=== PATIENT | female | born 1960 | race Caucasian/White ===

== ENCOUNTER 2021-02-22 09:14 | Day surgery (SDC) | payer OTHER ==
[~2021-02-22] VITALS: Ht 167.6 cm; Wt 100.8 kg
[~2021-02-22 09:14] MED LIST: ASPI81CH
== END 2021-02-22 11:32 | disposition home or self-care (01) ==
LOC: ORSCSDS 09:14
PROVIDERS: Surgery
PROC: 0DBK8ZX Excision of Ascending Colon, Via Natural or Artificial Opening Endoscopic, Diagnostic (ICD-10-PCS; principal; 2021-02-22 10:30)
DX: Z12.11 Encounter for screening for malignant neoplasm of colon (principal); Z80.0 Family history of malignant neoplasm of digestive organs; D12.2 Benign neoplasm of ascending colon; K57.30 Diverticulosis of large intestine without perforation or abscess without bleeding; E66.01 Morbid (severe) obesity due to excess calories; Z68.36 Body mass index [BMI] 36.0-36.9, adult; Z79.82 Long term (current) use of aspirin
CPT/HCPCS: 88305; J2704; J7120

== ENCOUNTER → 2022-06-04 | Outpatient (CLI) | payer OTHER ==
[2022-06-04 18:00] LABS: Alanine Aminotransfer (ALT/SGP 43 U/L (12-78); Albumin, Blood 3.7 g/dL (3.4-5.0); Albumin/Globulin Ratio 0.9 (0.8-1.8); Alk Phos 114 U/L (50-136); Anion Gap 5 mmol/L (6-16); Aspartate Aminotrans (AST/SGOT 27 U/L (12-37); Bilirubin, Total 0.4 mg/dL (0.1-1.0); Blood Urea Nitrogen 15 mg/dL (8-24); CHOL/HDL RATIO 6.4; CO2, Blood 26 mmol/L (21-32); Calcium, Blood 9.2 mg/dL (8.5-10.1); Chloride, Blood 108 mmol/L (98-108); Cholesterol 280 mg/dL (50-200); Ferritin, Serum 178 ng/mL (8-252); Globulin, Blood 3.9 g/dL (2.2-4.0); Glucose, Blood 109 mg/dL (70-99); HDL Cholesterol 44 mg/dL (>39); Iron Serum 65 ug/dL (50-170); LDL/HDL RATIO 3.9; Low Density Lipoprotein Chol 172 mg/dL (0-110); Potassium, Blood 4.1 mmol/L (3.5-5.5); Sodium, Blood 139 mmol/L (136-145); Total Protein, Blood 7.6 g/dL (6.4-8.2); Triglycerides 318 mg/dL (30-160); Very Low Density Lipoprot Chol 63 mg/dL (6-32)
[2022-06-04 18:04] LABS: Bun/Creatinine Ratio 19.3 (12.0-20.0); Creatinine, Blood 0.78 mg/dL (0.40-1.00); Glomerular Filtration Rate 85 (60-); Percent Saturation 21.6 % (15.0-50.0); Total Iron Binding Capacity 301 ug/dL (250-450)
== END | disposition home or self-care (01) ==
LOC: LAB 08:55 → LAB SHORT 16:28
PROVIDERS: Nurse Practitioner Family
DX: E66.9 Obesity, unspecified (principal)
CPT/HCPCS: 36415; 80053; 80061; 82728; 83036; 83540; 83550; 84443